=== PATIENT | male | born 2000 | race Two or more races ===

== ENCOUNTER 2021-10-15 16:56 | Emergency (ER) | payer BC ==
[~2021-10-15] VITALS: Ht 182.9 cm; Wt 79.0 kg
--- NOTE | 2021-10-15 19:49 | PHYS DOC ---
Past Medical History Past Medical History: No Pertinent History Past Surgical History: No Surgical History Smoking Status: Current Every Day Smoker Alcohol Use: None Drug Use: None General Adult EDM: Chief Complaint: ABDOMINAL PAIN HPI: HPI: Patient is a 20-year-old male who presents to the ED with abdominal pain. Patient states that he woke up this morning from the pain, he stated that the pain at first he confused for a hunger pain but after eating an omelette he said the food made it worse. He has had a decreased appetite all day because of this pain and has not been able to eat or drink as much as he normally would and has not felt the need to either. He says the pain is better whenever he sits still but is worse when he has to move around, eats or drinks, or if he coughs. Patient states he has been coughing for about 2days causing him a slight bit of nausea but having no vomiting he has not had any fever or any other signs of i llness he says the cough is minor but today it has caused an increase in his pain when he does cough. Patient states the pain is centered on his right side kind of general all over. He says it causes shooting pain up towards his chest. He says normally the pain is rated a 2 out of 10 but shoots to a 7 out of 10. Patient has not had a bowel movement today his last bowel movement was normal yesterday. Patient states that his normal bowel movement regimen is every couple of days. He denies any other trauma or any other changes in his diet or activities recently. Review of Systems: Review of Systems: Constitutional: Denies fever or chills Eyes: Denies redness or eye pain HENT: Denies nasal congestion or sore throat Respiratory: Endorses mild cough, denies shortness of breath Cardiovascular: Denies chest pain or palpitations GI: Endorses right-sided abdominal pain and nausea, denies vomiting : Denies dysuria or hematuria Musculoskeletal: Denies back pain or joint pain Integument: Denies rash or skin lesions Neurologic: Denies headache, focal weakness or sensory changes Complete systems were reviewed and found to be within normal limits, except as documented in this note. Heart Score: C/O Chest Pain: N/A Current Medications: Current Medications Medications (Trade) Dose Ordered Sig/Rabia Start Time Stop Time Status Last Admin Dose Admin Famotidine (Pepcid Vial) 20 mg 1X ONCE 10/15/21 19:30 10/15/21 19:31 UNV Ketorolac Tromethamine (Toradol 15mg Vial) 15 mg 1X ONCE 10/15/21 19:30 10/15/21 19:31 UNV Ondansetron HCl (Zofran) 4 mg 1X ONCE 10/15/21 19:30 10/15/21 19:31 UNV Sodium Chloride 1,000 ml @ 1,000 mls/hr 1X ONCE 10/15/21 19:30 10/15/21 20:29 UNV Physical Exam: PE: Constitutional: Well developed, well nourished, when laying flat no acute distress, non-toxic appearance HENT: Normocephalic, atraumatic Eyes: PERRL, EOMI, conjunctiva normal, no discharge Neck: Normal range of motion, no tenderness, supple Lungs & Thorax: No respiratory distress, equal chest rise and fall Abdomen: Soft, no rebound tenderness, negative Aranda sign, negative McBurney's point, negative Bob's punch bilaterally. Does endorse moderate pain upon palpation of right middle and right upper quadrant. Skin: Warm, dry, no erythema, no rash Back: No tenderness, no CVA tenderness Extremities: No tenderness, ROM intact, no edema Neurologic: Alert and oriented X 3, no focal deficits noted Psychologic: Affect normal, judgment normal Current Patient Data: Vital Signs: Vital Signs Date Time Temp Pulse Resp B/P (MAP) Pulse Ox O2 Delivery O2 Flow Rate FiO2 10/15/21 19:05 97.7 65 14 134/81 (98) 99 Room Air 97.7 EKG: EKG: [] Radiology/Procedures: Radiology/Procedures: PROCEDURE: CT ABD PELV W/ IV CONTRST ONLY Exam Date: 10/15/2021 7:[address] ABDOMEN+PELVIS W Indication: Reason: RLQ pain, eval for appy, OMNI 300 75 ML IV / Spl. Instructions: / History: . TECHNIQUE: CT examination of the abdomen and pelvis was performed following the administration of oral and nonionic intravenous contrast. One or more of the following dose reduction techniques were utilized: *Automated exposure control (AEC) *Adjustment of mA and/or kV according to patient size *Use of iterative reconstruction technique *CT scan done according to ALARA, or ALARA/IMAGE GENTLY FINDINGS: The visualized lung bases are clear. The liver, gallbladder, spleen, pancreas, adrenal glands and kidneys are normal. Urinary bladder is normal in appearance. There is no bowel obstruction or inflammation. The appendix is normal. Small free fluid is seen in the pelvis which is nonspecific but abnormal/atypical in a male patient. No significant atherosclerotic calcifications are seen. No lymphadenopathy or ascites is seen. Osseous structures are intact. IMPRESSION: Normal appendix. No bowel obstruction or inflammation. Small free fluid is seen in the pelvis which is nonspecific but abnormal/atypical in a male patient. The etiology of this finding is unclear. Clinical correlation is advised. Electronically signed by: Stanislav Calderon MD (10/15/2021 9:16 PM) [facility] Course & Med Decision Making: Course & Med Decision Making Pertinent Labs and Imaging studies reviewed. (See chart for details) Patient is a 20-year-old male who presents to the ED with abdominal pain. This patient is complaining of of pain on his right side that shoots generally upwards towards his chest, gets worse with eating and movement. Patient does endorse not having a bowel movement but is generally within his normal bowel mo vement regimen schedule. On physical exam the patient has nonspecific pain that is hard to reproduce. Due to the patient's age, location of pain, we are starting IV fluids to help with any dehydration, IV Toradol for pain control and IV ondansetron for any nausea, as well as getting labs to look for any signs of infection or any other acute process. We are as well sending for CT scan with IV contrast of his abdomen to look for any pathology. Patient stable for discharge with outpatient follow-up with PCP. Discussed findings and plan with patient, who acknowledges understanding and agreement. Devon Disclaimer: Devon Disclaimer: This electronic medical record was generated, in whole or in part, using a voice recognition dictation system. Departure Departure Impression: Primary Impression: Abdominal pain Qualified Codes: R10.9 - Unspecified abdominal pain Disposition: HOME / SELF CARE / HOMELESS Condition: STABLE Referrals: UNKNOWN PCP NAME (PCP) ADAN WILDER MD Patient Instructions: Abdominal Pain, [id number] Scripts Hyoscyamine Sulfate (LEVSIN-SL) 0.125 Mg Tab.subl 0.125 MG SL Q6HRS PRN for PAIN, #14 TAB Prov: QUAN RESENDIZ DO 10/15/21 Famotidine (PEPCID) 20 Mg Tablet 20 MG PO BID, #14 TAB Prov: QUAN RESENDIZ DO 10/15/21 Ondansetron (ONDANSETRON ODT) 4 Mg Tab.rapdis 1 TAB PO PRN Q6-8HRS PRN for NAUSEA, #16 TAB Prov: QUAN RESENDIZ DO 10/15/21 QUAN RESENDIZ DO Oct 15, 2021 19:49
[2021-10-15 19:55] LABS: BASO # 0.1 x10^3/uL (0.0-0.2); BASO % 1 % (0-3); EOS # 0.3 x10^3/uL (0.0-0.7); EOS % 3 % (0-3); HEMATOCRIT 43.4 % (39.0-53.0); HEMOGLOBIN 14.7 g/dL (13.0-17.5); LYMPH # 2.3 x10^3/uL (1.0-4.8); LYMPH % 26 % (24-48); MEAN CORPUSCULAR HEMOGLOBIN 30 pg (25-35); MEAN CORPUSCULAR HGB CONC 34 g/dL (31-37); MEAN CORPUSCULAR VOLUME 88 fL (79-100); MONO # 0.9 x10^3/uL (0.0-1.1); MONO % 10 % (0-9); NEUT # 5.6 x10^3/uL (1.8-7.7); NEUT % 61 % (31-73); PLATELET COUNT 183 x10^3/uL (140-400); RED BLOOD COUNT 4.91 x10^6/uL (4.30-5.70); RED CELL DISTRIBUTION WIDTH 12.9 % (11.5-14.5); WHITE BLOOD COUNT 9.2 x10^3/uL (4.0-11.0)
[2021-10-15] MEDS ORDERED: ONDANSETRON PF 4 MG/2 ML VIAL. IVP ONE (20:00)
[2021-10-15] MEDS ORDERED: KETOROLAC 30 MG/ML VIAL. IVP ONE (20:00)
[2021-10-15] MEDS ORDERED: FAMOTIDINE 20 MG/2 ML VIAL IVP ONE (20:00)
[2021-10-15] MEDS ORDERED: IV NORMAL SALINE 1000ML BAG 1,000 ML IV ONE (20:00)
[2021-10-15 20:04] LABS: BILIRUBIN,URINE NEGATIVE (NEG); CLARITY,URINE CLOUDY; COLOR,URINE YELLOW; NITRITE,URINE NEGATIVE (NEG); PH,URINE 6.5 (<5.0-8.0); PROTEIN,URINE NEGATIVE (NEG-TRACE); UROBILINOGEN,URINE 0.2 mg/dL (0.2 mg/dL)
[2021-10-15 20:07] LABS: CALCIUM 8.7 mg/dL (8.5-10.1); CREATININE 0.9 mg/dL (0.7-1.3); GFR 107.6; POTASSIUM 3.5 mmol/L (3.5-5.1)
[2021-10-15 20:09] LABS: ALBUMIN 3.8 g/dL (3.4-5.0); ALBUMIN/GLOBULIN RATIO 0.9 (1.0-1.7); MAGNESIUM 2.3 mg/dL (1.8-2.4); TOTAL BILIRUBIN 0.4 mg/dL (0.2-1.0); TOTAL PROTEIN 8.1 g/dL (6.4-8.2)
[2021-10-15 20:11] LABS: AMORPHOUS SEDIMENT,UR PRESENT /HPF; BACTERIA,URINE 0 /HPF (0-FEW); RBC,URINE 0 /HPF (0-2); WBC,URINE 0 /HPF (0-4)
[2021-10-15] MEDS ORDERED: IOHEXOL 300 MG/ML 100ML VIAL. IV ONE (20:30)
--- NOTE | 2021-10-15 21:19 | RAD ---
Exam Date: 10/15/2021 7:[address] ABDOMEN+PELVIS W Indication: Reason: RLQ pain, eval for appy, OMNI 300 75 ML IV / Spl. Instructions: / History: . TECHNIQUE: CT examination of the abdomen and pelvis was performed following the administration of or al and nonionic intravenous contrast. One or more of the following dose reduction techniques were ut ilized: *Automated exposure control (AEC) *Adjustment of mA and/or kV according to patient size *Use of iterative reconstruction technique *CT scan done according to ALARA, or ALARA/IMAGE GENTLY FINDINGS: The visualized lung bases are clear. The liver, gallbladder, spleen, pancreas, adrenal glands and kidneys are normal. Urinary bladder is normal in appearance. There is no bowel obstruction or inflammation. The appendix is normal. Small free fluid is seen in the pelvis which is nonspecific but abnormal/atypical in a male patient. No significant atherosclerotic calcifications are seen. No lymphadenopathy or ascites is seen. Osseous structures are intact. IMPRESSION: Normal appendix. No bowel obstruction or inflammation. Small free fluid is seen in the pelvis which is nonspecific but abnormal/atypical in a male patient. The etiology of this finding is unclear. Clinical correlation is advised. Electronically signed by: Stanislav Calderon MD (10/15/2021 9:16 PM) [facility]
[2021-10-15] MEDS ORDERED: ONDA4TAB12 PO (21:43)
[2021-10-15] MEDS ORDERED: FAMO-63 PO (21:43)
[2021-10-15] MEDS ORDERED: HYOS0.1265 SL (21:43)
[2021-10-15 22:10] VITALS: BP 110/58
== END 2021-10-15 22:20 | disposition home or self-care (01) ==
LOC: ER 16:56
DX: R10.31 Right lower quadrant pain (principal); R05.9 Cough, unspecified; R11.0 Nausea; F17.200 Nicotine dependence, unspecified, uncomplicated
CPT/HCPCS: 36415; 74177; 80053; 81001; 83690; 83735; 85025; 96361; 96374; 96375; 99285; J1885; J2405; J3490; J7030; Q9967